=== PATIENT | female | born 1955 | race Caucasian/White ===

== ENCOUNTER → 2024-05-30 | Outpatient (CLI) | payer MEDICARE ==
[2024-05-30 15:39] LABS: Basophils # (A) 0.02 X 10*3/uL (0.00-0.10); Basophils % (A) 0.3 %; Eosinophils # (A) 0.05 X 10*3/uL (0.04-0.35); Eosinophils % (A) 0.8 %; HCT 43.7 % (37.2-46.3); HGB 14.7 g/dL (12.0-15.0); Lymphocytes # (A) 1.37 X 10*3/uL (0.90-5.00); Lymphocytes % (A) 22.3 %; MCHC 33.6 g/dL (32.0-37.0); Mean Platelet Volume 11.7 FL (9.5-12.2); Monocytes # (A) 0.35 X 10*3/uL (0.20-1.00); Monocytes % (A) 5.7 %; NRBC Per 100 WBC 0 X 10*3/uL (0.00-0.01); Neutrophils # (A) 4.34 X 10*3/uL (1.80-7.70); Neutrophils % (A) 70.7 %; Platelet Count 271 X 10*3/uL (140-440); RDW 11.9 % (11.5-14.5); WBC 6.14 X 10*3/uL (4.50-10.00)
[2024-05-30 15:56] LABS: Calcium 10.1 mg/dL (8.7-10.3); Chloride 106 mmol/L (96-109); Glucose 163 mg/dL (70-110); Potassium 5.2 mmol/L (3.5-5.5); Sodium 141 mmol/L (135-145)
[2024-05-30 18:38] LABS: INR 0.98 sec (0.93-1.11); Prothrombin Time 10.6 sec (9.9-11.9)
== END | disposition home or self-care (01) ==
LOC: LABWHC1 10:23
PROVIDERS: ATTEND Orthopaedic Surgery
DX: Z01.812 Encounter for preprocedural laboratory examination (principal); M17.11 Unilateral primary osteoarthritis, right knee; Z22.322 Carrier or suspected carrier of Methicillin resistant Staphylococcus aureus
CPT/HCPCS: 36415; 80048; 85025; 85610; 87070

== ENCOUNTER 2024-06-18 07:52 | Inpatient (IN) | payer BC, MEDICARE ==
[2024-06-13 14:45] VITALS: BMI 34.2
--- NOTE | 2024-06-18 06:38 | HP ---
HISTORY AND PHYSICAL ANTICIPATED DATE OF SURGERY: 06/18/2004. HISTORY OF PRESENT ILLNESS: Sandrita Luna is a 68-year-old patient, seen with symptomatic right knee osteoarthritis. We discussed options regarding treatment. She elected to proceed with right total knee arthroplasty. Consent was obtained. Cardiac clearance was provided by Dr. Adam Tavares. Her family physician is Dr. Roxanna Lamb. PAST MEDICAL HISTORY: Hypertension, hyperlipidemia, cardiovascular disease. PAST SURGICAL HISTORY: Cholecystectomy, hysterectomy. DAILY MEDICATIONS: 1. Lisinopril. 2. Ibuprofen. 3. Aspirin. 4. Metoprolol. 5. Ozempic. ALLERGIES: Codeine. SOCIAL HISTORY: She denies current tobacco use. PHYSICAL EVALUATION OF THE RIGHT KNEE: Her range of motion is -3/4 to 110 degrees. Mild to moderate effusion. Tenderness along the medial and lateral joint lines. Crepitance along the medial and lateral patellofemoral compartments. There is pain with patellofemoral compression. Ligaments stable. Distal neurovascular exam is intact. IMAGING STUDIES: Radiographs of the right knee reveal severe osteoarthritic changes. IMPRESSION: 1. Right knee osteoarthritis. 2. Hypertension. 3. Hyperlipidemia. 4. Cardiovascular disease. PLAN: Right total knee arthroplasty. MMODL / IJN: [id number] /
[~2024-06-18 07:52] MED LIST: ACETAMINOPHEN TAB 500 MG TAB PO PRN; MELOXICAM 7.5 MG TAB PO PRN; TRANEXAMIC 1,000 MG/100ML-NACL 1,000 MG in SALINE 1 100ML.BAG IVPB PRN
[2024-06-18 09:02] LABS: Glucose,Whole Blood 256 mg/dL (70-110)
[2024-06-18 13:00] LABS: Glucose,Whole Blood 153 mg/dL (70-110)
[2024-06-18 17:13] LABS: Glucose,Whole Blood 174 mg/dL (70-110)
[2024-06-18] MEDS ORDERED: HYDROmorphone 0.5 MG/0.5 ML SYRINGE ONE (18:37)
[2024-06-18] MEDS ORDERED: HYDROcodone/APAP 7.5-325MG 1 EACH TAB ONE (21:52)
[2024-06-18] MEDS ORDERED: SENNOSIDES-DOCUSATE SODIUM 1 EACH TAB PO ONE (21:54)
[2024-06-18 23:17] LABS: Glucose,Whole Blood 224 mg/dL (70-110)
[2024-06-19] MEDS ORDERED: HYDROmorphone 0.5 MG/0.5 ML SYRINGE ONE (02:20)
[2024-06-19] MEDS ORDERED: HYDROcodone/APAP 7.5-325MG 1 EACH TAB ONE ×2 (04:26→08:52)
[2024-06-19 06:07] LABS: Glucose,Whole Blood 217 mg/dL (70-110)
--- NOTE | 2024-07-06 15:51 | OP ---
OPERATIVE REPORT DATE OF SERVICE : 06/18/2024 PREOPERATIVE DIAGNOSIS: Right knee osteoarthritis. POSTOPERATIVE DIAGNOSIS: Right knee osteoarthritis. PROCEDURE PERFORMED: Right total knee arthroplasty. STONE BREAKER: SIGIFREDO Retana. ANESTHESIA: Spinal. ESTIMATED BLOOD LOSS: 40 mL. COMPLICATIONS: None. IMPLANTS UTILIZED: 1. DePuy size 5 right cruciate-retaining cemented femur. 2. DePuy size 5 fixed bearing cemented tibial baseplate. 3. DePuy ATTUNE size 5 fixed bearing cruciate retaining 7 mm polyethylene tibial insert. 4. DePuy ATTUNE 38 mm all-polyethylene cemented patella. INDICATIONS FOR PROCEDURE: Sandrita Luna is a 68-year-old patient seen with severe symptomatic right knee osteoarthritis. We discussed options for treatment. She elected to proceed with a right total knee arthroplasty. Consent regarding the procedure obtained. DESCRIPTION OF PROCEDURE: The patient was taken to the operative suite. She received preoperative IV antibiotics and TXA. She underwent a spinal anesthetic by the Department of Anesthesia. A Well- padded tourniquet was placed in the proximal right thigh. The right lower extremity was prepped and draped in normal sterile orthopedic fashion. Extremity was elevated, tourniquet was insufflated to 300. A standard anterior incision was made sharply through the skin. Dissection taken down to the extensor mechanism. A medial arthrotomy was performed. Knee was flexed. Patella was everted. Advanced osteoarthritis was noted throughout the knee. A standard distal femoral cut was made. We placed our proximal tibial cutting jig in position, made a proximal tibial cut. We now placed our sizing guide for the distal femur, placed pins in place, and the 4-in-1 cutting guide was positioned. Appropriate distal femoral cuts were now made. I now removed any residual meniscal tissue and performed appropriate releases. We now placed trial components for the tibia, femur as well as the polyethylene tray. We took the knee through range of motion. We noted full range of motion with good overall stability. The patella was everted, and a flush cut was made with the patella and quad tendon. We now placed an appropriate size patella in position and tracked nicely. Appropriate drill holes were made through both the patella and the distal femoral component. All the trial components were now removed. Retractors were placed on the proximal tibia. Appropriate tibial punch was made along with the punch guide. At this point, the wound was copiously irrigated with mechanical pulse lavage irrigation. All the appropriate components were opened. Methylmethacrylate was mixed. We dried out the knee. We now cemented our tibial tray, removing excess methylmethacrylate. We introduced our polyethylene component, made sure it was stable and secure. We also cemented down our femoral component, took the knee in full extension, back in flexion, making sure I removed any excess methylmethacrylate. We now cemented our patellar component, secured with a clamp. We held the knee in full extension with the patellar clamp in position until the methylmethacrylate had hardened. Once it was hardened, the patellar clamp was removed. The knee was taken through a full range of motion with good range of motion and stability. The tourniquet was released. Hemostasis was achieved via electrocautery. The wound was irrigated with mechanical irrigation. Extensor mechanism was repaired with #1 Ethibond. Subcutaneous and soft tissues were repaired with Vicryl. The skin edge was repaired with a running subcuticular suture, augmented with skin glue. Sterile dressings were applied, followed by a loose Enmanuel bandage. The patient was now awakened and transferred to the recovery in stable condition, having tolerated the procedure well. SIGIFREDO Rust assisted in all aspects of this complex procedure. MMODL / IJN: [id number] /
== END 2024-06-19 11:53 | disposition home health service (06) | DRG 470 ==
LOC: OR 07:52 → DISRECOVER 12:01 → OR 06-19 11:53
PROVIDERS: ADMIT Orthopaedic Surgery; ATTEND Orthopaedic Surgery
PROC: 0SRC0J9 Replacement of Right Knee Joint with Synthetic Substitute, Cemented, Open Approach (ICD-10-PCS; principal; 2024-06-18)
PROC: 3E0T3BZ Introduction of Anesthetic Agent into Peripheral Nerves and Plexi, Percutaneous Approach (ICD-10-PCS; 2024-06-18)
DX: M17.11 Unilateral primary osteoarthritis, right knee (principal); E78.5 Hyperlipidemia, unspecified; I10 Essential (primary) hypertension; I67.9 Cerebrovascular disease, unspecified; I25.10 Atherosclerotic heart disease of native coronary artery without angina pectoris; Z90.710 Acquired absence of both cervix and uterus; Z90.49 Acquired absence of other specified parts of digestive tract; Z88.6 Allergy status to analgesic agent; Z88.5 Allergy status to narcotic agent; E11.9 Type 2 diabetes mellitus without complications; Z79.84 Long term (current) use of oral hypoglycemic drugs